=== PATIENT | male | born 1940 | race Two or more races ===

== ENCOUNTER 2018-10-21 16:44 | Inpatient (IN) | payer MEDICARE, OTHER ==
[~2018-10-21] VITALS: Ht 165.1 cm; Wt 61.7 kg
[2018-10-21 16:45] VITALS: BP 158/88
--- NOTE | 2018-10-21 16:45 | NUR ---
ED Nurse Note: brought by RA 26 from home due to allergic reaction after took penicillins that prescribed by dentist. pt c/o itchness. per EMS, redness is normal to him. no SOB. ermd on bedside. will continue to monitor.
[2018-10-21] MEDS ORDERED: DiphenhydrAMINE 50mg/ml Inj IVP ONE ×2 (17:00)
--- NOTE | 2018-10-21 17:07 | Emergency Room Report ---
History of Present Illness General Chief Complaint: Allergic Reaction Source: Patient, EMS Present Illness HPI 78-year-old male with a history of hypertension diabetes presenting with allergic reaction. He was at the dentist. He took one penicillin pill. He has never taken this antibiotic in the past. He broke out in hives. He said he is very itchy. The rash broke out on his face arms and abdomen. No throat closing, no shortness of breath. He is complaining of some vague left-sided chest pain. Never had a stress test. No nausea or vomiting Allergies: Coded Allergies: PENICILLINS (Verified Allergy, Unknown, 10/21/18) Patient History Past Medical History: see triage record Past Surgical History: none Pertinent Family History: none Reviewed Nursing Documentation: PMH: Agreed; PSxH: Agreed Nursing Documentation-PMH Past Medical History: No History, Except For Hx Hypertension: Yes Hx Diabetes: Yes Review of Systems All Other Systems: negative except mentioned in HPI Physical Exam Vital Signs Date Time Temp Pulse Resp B/P (MAP) Pulse Ox O2 Delivery O2 Flow Rate FiO2 10/21/18 16:35 98.8 127 18 158/88 95 Room Air Sp02 EP Interpretation: reviewed, normal General Appearance: alert, GCS 15, non-toxic, mild distress Head: normocephalic, atraumatic Eyes: bilateral eye normal inspection, bilateral eye PERRL, bilateral eye EOMI ENT: normal pharynx, no angioedema, normal voice, moist mucus membranes Neck: normal inspection, full range of motion, supple Respiratory: no respiratory distress, no accessory muscle use, speaking full sentences Cardiovascular #1: tachycardia Cardiovascular #2: 2+ radial (R), 2+ radial (L) Gastrointestinal: normal inspection, non tender, soft, non-distended, no guarding Musculoskeletal: normal inspection, back normal, normal range of motion, non- tender Neurologic: normal inspection, alert, oriented x3, responsive, motor strength/ tone normal, sensory intact, normal gait, speech normal Psychiatric: normal inspection, judgement/insight normal, memory normal Skin: no rash, warm/dry, well hydrated, normal turgor, other - Raised urticarial rash noted on face abdomen and arms Procedures Critical Care Time Critical Care Time Critical care time of 40 minutes, was performed in order to assess and manage the high probability of imminent or life threatening deterioration , with frequent reassessment and excludes all billable procedures. Medical Decision Making Diagnostic Impression: Primary Impression: Chest pain Additional Impressions: ACS (acute coronary syndrome) Anaphylactic reaction Renal insufficiency ER Course 78-year-old male with allergic reaction Likely 2/2 to penicillin Now also with left-sided chest pain Allergic reaction from antibiotic, also rule out ACS due to patient not experiencing chest pain Plan: Benadryl, pepcid, steroids No epi is required at this time Labs, EKG, chest x-ray ER course: No respiratory symptoms or angioedema. He still continues to be tachycardic although it is improved from 140 to 1:15 to 120. No shortness of breath no angioedema no wheezing. got fluids/solumedrol-pepcid/benadryl Disposition: Patient is to be admitted to Dr Casillas he has accepted at 838pm EKG Diagnostic Results EP Interpretation: Yes Rate: 124 Rhythm: NSR ST Segments: No acute changes ASA given to patient: No Rhythm Strip EP Interpretation: Yes Rate:120 Rhythm: NSR, no PVCs, no ectopy Chest X-ray CXR: Ordered: Yes 1 view Indication: Chest pain EP interpretation: Yes Interpretation: mild cardiomegaly Impression: No acute disease Electronically signed by Arvind Bridges MD Laboratory Tests Test 10/21/18 16:59 10/21/18 17:50 White Blood Count 13.1 K/UL (4.8-10.8) H Red Blood Count 5.37 M/UL (4.70-6.10) Hemoglobin 16.8 G/DL (14.2-18.0) Hematocrit 49.4 % (42.0-52.0) Mean Corpuscular Volume 92 FL (80-99) Mean Corpuscular Hemoglobin 31.3 PG (27.0-31.0) H Mean Corpuscular Hemoglobin Concent 34.0 G/DL (32.0-36.0) Red Cell Distribution Width 12.7 % (11.6-14.8) Platelet Count 234 K/UL (150-450) Mean Platelet Volume 6.7 FL (6.5-10.1) Neutrophils (%) (Auto) % (45.0-75.0) Lymphocytes (%) (Auto) % (20.0-45.0) Monocytes (%) (Auto) % (1.0-10.0) Eosinophils (%) (Auto) % (0.0-3.0) Basophils (%) (Auto) % (0.0-2.0) Sodium Level 135 MMOL/L (136-145) L Potassium Level 4.5 MMOL/L (3.5-5.1) Chloride Level 98 MMOL/L (98-107) Carbon Dioxide Level 20 MMOL/L (21-32) L Anion Gap 17 mmol/L (5-15) H Blood Urea Nitrogen 28 mg/dL (7-18) H Creatinine 1.7 MG/DL (0.55-1.30) H Estimate Glomerular Filtration Rate mL/min (>60) Glucose Level 282 MG/DL (74-106) H Calcium Level 9.1 MG/DL (8.5-10.1) Total Bilirubin 0.6 MG/DL (0.2-1.0) Aspartate Amino Transferase (AST) 18 U/L (15-37) Alanine Aminotransferase (ALT) 16 U/L (12-78) Alkaline Phosphatase 78 U/L (46-116) Troponin I 0.000 ng/mL (0.000-0.056) Pro-B-Type Natriuretic Peptide 636 pg/mL (0-125) H Total Protein 7.6 G/DL (6.4-8.2) Albumin 3.7 G/DL (3.4-5.0) Globulin 3.9 g/dL Albumin/Globulin Ratio 0.9 (1.0-2.7) L Urine Color Pale yellow Urine Appearance Slightly cloudy Urine pH 5 (4.5-8.0) Urine Specific [place] 1.010 (1.005-1.035) Urine Protein 2+ (NEGATIVE) H Urine Glucose (UA) 3+ (NEGATIVE) H Urine Ketones Negative (NEGATIVE) Urine Blood 2+ (NEGATIVE) H Urine Nitrite Negative (NEGATIVE) Urine Bilirubin Negative (NEGATIVE) Urine Urobilinogen Normal MG/DL (0.0-1.0) Urine Leukocyte Esterase 1+ (NEGATIVE) H Urine RBC 0-2 /HPF (0 - 0) H Urine WBC 5-10 /HPF (0 - 0) H Urine Squamous Epithelial Cells Occasional /LPF Urine Bacteria Few /HPF (NONE) Urine Waxy Casts 0-2 /LPF (NONE) H Urine Mucus Few /LPF (NONE/OCC) H CT/MRI/US Diagnostic Results CT/MRI/US Diagnostic Results : Imaging Test Ordered: CT HEAD Impression mild atrophy Last Vital Signs Date Time Temp Pulse Resp B/P (MAP) Pulse Ox O2 Delivery O2 Flow Rate FiO2 10/21/18 16:45 127 18 Room Air 10/21/18 16:45 98.8 158/88 95 Disposition: ADMITTED INPATIENT Condition: Serious Arvind Bridges M.D. Oct 21, 2018 17:07
[2018-10-21 17:15] LABS: HEMATOCRIT 49.4 % (42.0-52.0); HEMOGLOBIN 16.8 G/DL (14.2-18.0); MEAN CORPUSCULAR VOLUME 92 FL (80-99); PLATELET COUNT 234 K/UL (150-450); RED BLOOD COUNT 5.37 M/UL (4.70-6.10); RED CELL DISTRIBUTION WIDTH 12.7 % (11.6-14.8); WHITE BLOOD COUNT 13.1 K/UL (4.8-10.8)
[2018-10-21 17:28] LABS: ANION GAP 17 mmol/L (5-15); BLOOD UREA NITROGEN 28 mg/dL (7-18); CALCIUM 9.1 MG/DL (8.5-10.1); CARBON DIOXIDE 20 MMOL/L (21-32); CHLORIDE 98 MMOL/L (98-107); CREATININE 1.7 MG/DL (0.55-1.30); POTASSIUM 4.5 MMOL/L (3.5-5.1); SODIUM 135 MMOL/L (136-145)
[2018-10-21 17:42] LABS: ALANINE AMINOTRANSFERASE 16 U/L (12-78); ALBUMIN 3.7 G/DL (3.4-5.0); ALBUMIN/GLOBULIN RATIO 0.9 (1.0-2.7); ALKALINE PHOSPHATASE 78 U/L (46-116); ASPARTATE AMINO TRANSFERASE 18 U/L (15-37); BILIRUBIN,TOTAL 0.6 MG/DL (0.2-1.0)
--- NOTE | 2018-10-21 17:45 | NUR ---
ED Nurse Note: pt able to give urine specimen and sent to lab.
[2018-10-21 18:00] LABS: APPEARANCE,URINE SLIGHTLY CLOUDY; BILIRUBIN, URINE NEGATIVE (NEGATIVE); COLOR,URINE PALE YELLOW; GLUCOSE, URINE (UA) 3+ (NEGATIVE); KETONES,URINE NEGATIVE (NEGATIVE); LEUKOCYTE ESTERASE ,URINE 1+ (NEGATIVE); NITRITE,URINE NEGATIVE (NEGATIVE); PH,URINE 5 (4.5-8.0); PROTEIN,URINE 2+ (NEGATIVE); UROBILINOGEN,URINE NORMAL MG/DL (0.0-1.0)
[2018-10-21 19:20] VITALS: BP 175/100
[2018-10-21] MEDS ORDERED: Solu-MEDROL 125mg Inj IVP ONE (19:45)
--- NOTE | 2018-10-21 20:03 | NUR ---
ED Nurse Note: patient is in the bed, HR is 135, BP is 157/95. AAO x4.
[2018-10-21 21:35] VITALS: BP 208/111
[2018-10-21 22:45] VITALS: BP 154/98
--- NOTE | 2018-10-21 22:45 | NUR ---
ED Nurse Note: Patient was admited to Tele due to allergic reaction. AAO x4, patient's BP is 158/98, other VSS. all belongings were given to the patient. Patient was transfered by ACLS protocol.
--- NOTE | 2018-10-21 22:47 | NUR ---
NURSE NOTES: Received patient and report from KAVITA Abrams via juan from ED. Patient is awake showing no signs of acute distress. AOx4. Denies any pain or discomfort. BP - 145/96, pulse 125, Temp. 96.5, R 18, O2 sat 98%. All needs attended and met. Family at bedside. Bed in lowest position. Call light within reach. Will call Dr. Casillas for admission order.
[2018-10-21 23:00] VITALS: BP 145/96
--- NOTE | 2018-10-21 23:00 | NUR ---
NURSE NOTES: Received admission orders from Dr. Casillas. Noted and carried out
[2018-10-22 04:00] VITALS: BP 133/92
[2018-10-22] MEDS ORDERED: NovoLOG Insulin Flexpen SUBQ SCH (06:30)
--- NOTE | 2018-10-22 07:14 | NUR ---
CASE MANAGEMENT:REVIEW 78 YR OLD MALE BIBA FROM HOME CC: ITCHING AFTER TAKING PENICILLIN PRESCRIBED BY DENTIST SI: ANAPHYLACTIC REACTION. ACS. RENAL INSUFF 98.8 127 18 175/100 95% ON RA WBC+13.1 BUN+28 CR+1.7 GLUCOSE+282 TROPONIN(-) IS: IV BENADRYL X2 IV PEPCID X2 1L NS BOLUS X1 IV SOLUMEDROL X1 CT HEAD CXR : TO TELEMETRY INTERQUAL CRITERIA MET
--- NOTE | 2018-10-22 07:31 | NUR ---
HAND-OFF: Report given to KAVITA Flowers.
--- NOTE | 2018-10-22 07:49 | NUR ---
NURSE NOTES: Received report from KAVITA Gray. Patient is in stable condition. No acute distress/SOB noted. is at the bedside. Will continue plan of care.
[2018-10-22 08:00] VITALS: BP 147/99
[2018-10-22 08:34] VITALS: BP 147/99
[2018-10-22] MEDS ORDERED: Losartan 50mg tab ORAL SCH (09:00)
[2018-10-22] MEDS ORDERED: JANUVIA25 MG ORAL (09:11)
[2018-10-22] MEDS ORDERED: IBUPROFEN600 MG ORAL (09:11)
[2018-10-22] MEDS ORDERED: COZAAR50 MG ORAL (09:11)
[2018-10-22 09:27] LABS: ANION GAP 11 mmol/L (5-15); BLOOD UREA NITROGEN 35 mg/dL (7-18); CARBON DIOXIDE 24 MMOL/L (21-32); CHLORIDE 99 MMOL/L (98-107); CREATININE 1.6 MG/DL (0.55-1.30); POTASSIUM 4.5 MMOL/L (3.5-5.1); SODIUM 134 MMOL/L (136-145)
--- NOTE | 2018-10-22 10:49 | Diagnostic Imaging Report ---
Indication: Head trauma headache Technique: Contiguous 5 mm thick transaxial imaging of the head obtained in a Siemens Sensation [address] scanner. Soft tissue and bone windows generated. Automatic Exposure Control was utilized. Total Dose length Product (DLP): 1404.[address] Dose Index Volume (CTDIvol): 70.38 mGy Comparison: none Findings: There is mild prominence of the ventricles, basal cisterns, and cerebral sulci consistent with atrophy. Mild, nonspecific, white matter hypoattenuation is noted throughout the brain consistent with chronic small vessel disease. There is no midline shift, edema, acute hemorrhage, mass effect, or abnormal extra-axial fluid collections. Bones and extra osseous soft tissues are unremarkable. Impression: No acute intracranial bleed, mass effect or edema. Mild atrophy of the brain. Nonspecific white matter hypoattenuation probably due to chronic small vessel disease. The CT scanner at [facility] is accredited by the [employer] and the scans are performed using dose optimization techniques as appropriate to a performed exam including Automatic Exposure control.
--- NOTE | 2018-10-22 10:52 | NUR ---
NURSE NOTES: Discharge instruction given and patient verbalized understanding. Removed IV line and hall monitor. Patient is in stable condition. No acute distress/SOB noted. Patient denies any pain at this time. Awaiting for daughter to picker packer.
--- NOTE | 2018-10-22 10:56 | NUR ---
NURSE NOTES: Patient left with stable condition via private car.
--- NOTE | 2018-10-22 11:07 | NUR ---
*-* INSURANCE *-* NO INSURANCE INFORMATION ON THE BAR TO SEND CLINICALS. CLINICALS HAVE BEEN FAXED TO [facility] FAX. [facility] F:[phone]
--- NOTE | 2018-10-22 11:26 | Diagnostic Imaging Report ---
Indication: Dyspnea Comparison: None A single view chest radiograph was obtained. Findings: Cardiomediastinal appearance is within normal limits for age. The lungs are clear. Pulmonary vascularity is appropriate. The diaphragmatic contour is smooth and costophrenic angles are sharp. No pleural effusions are identified. The bones are osteopenic. Impression: No acute findings
--- NOTE | 2018-10-22 14:56 | Cardiology Report ---
APPROVED REPORT EKG Measurement Heart [id number] Sinus tachycardia Left axis deviation Cannot rule out Anterior infarct, age undetermined Abnormal ECG
--- NOTE | 2018-10-22 16:30 | Consultation ---
DATE OF CONSULTATION: 10/22/2018 DATE OF ADMISSION: October 21, 2018. CONSULTING PHYSICIAN: Chris Aguiar M.D. REFERRING PHYSICIAN: Jerome Casillas M.D. REASON FOR CONSULTATION: 1. Acute kidney injury. 2. Chronic kidney disease, stage 3B. HISTORY OF PRESENT ILLNESS: The patient is a pleasant 78-year-old gentleman with known diabetes and hypertension, who was admitted overnight for further evaluation and care after an allergic reaction to penicillin. The patient was at his dentist. He was admitted due to feeling quite itchy and remaining tachycardic. He was noted to have creatinine of 1.7. The patient states that he has been told in the past by his primary care physician that his kidney function is not 100%, but he does not know his baseline creatinine. ALLERGIES: Penicillin. PAST MEDICAL HISTORY: 1. Diabetes. 2. Hypertension. 3. Hyperlipidemia. PAST SURGICAL HISTORY: None. FAMILY HISTORY: Positive for hypertension and diabetes. REVIEW OF SYSTEMS: NEUROLOGIC: The patient denies headache, change in vision, syncope, or presyncopal episodes. CARDIOVASCULAR: No current chest pain, palpitations, or angina. PULMONARY: No difficulty breathing, productive cough, or sputum. GASTROINTESTINAL/GENITOURINARY: No change in urinary or bowel habits. No nausea, vomiting, or diarrhea. ENDOCRINOLOGY: No night sweats, fevers, or chills. The patient is feeling itchy. MUSCULOSKELETAL: The patient is feeling weak, tired, and fatigued. PHYSICAL EXAMINATION: VITAL SIGNS: Pulse 112, temperature 98.4, blood pressure 133/92, respiratory rate 18, 98% oxygen saturation on room air. GENERAL: The patient is awake, alert, not otherwise in distress. HEENT: Extraocular muscles intact. No lymphadenopathy noted. Oropharyngeal mucosa clear and dry. CARDIOVASCULAR: S1 and S2. No rubs or gallops. Tachycardic. PULMONARY: Clear to auscultation bilaterally. No rales, rhonchi, or wheezes. ABDOMEN: Nondistended and nontender. EXTREMITIES: No edema. LABORATORY DATA: Labs dated 10/21/2018, white cell count 13.1, hemoglobin 16.8, and platelet count 234,000. Sodium 135, potassium 4.5, BUN 28, and creatinine 1.7. ASSESSMENT AND PLAN: 1. Acute versus chronic kidney disease stage 3B. At this time, baseline is not known, but he has been told in the past that his renal function is not normal. At this time, we will recheck morning labs and proceed accordingly. Minimal further investigations. The patient will need outpatient CKD evaluation. 2. Allergic reaction to penicillin. Being managed by primary care physician with steroids and Pepcid. 3. Hypertension. Continue losartan. 4. Diabetes mellitus. The patient on insulin therapy. Chris Aguiar MD DR: PINEDA/FLACO JOB#: [id number] CC:
--- NOTE | 2018-10-22 19:00 | History and Physical Report ---
DATE OF ADMISSION: 10/21/2018 HISTORY OF PRESENT ILLNESS: This is an 78-year-old male who has a long-standing hypertensive and diabetic. He went to the dentist yesterday and despite his knowledge that he was allergic to penicillin, he states the dentist gave him a penicillin tablet. He took the tablet and started having an allergic reaction. He had a rash on his face, which was itchy. He also had a rash on his arms and abdomen. He also felt dizzy and actually fell hitting the left side of his chest against a hard object. He then came to the emergency room at [facility], was admitted to the hospital due to the combination of allergic reaction as well as chest pain. His EKG is negative. His troponin is negative overnight. He states he is feeling well. On my assessment, he has palpable left chest wall tenderness. PAST MEDICAL HISTORY: Hypertension, diabetes. ALLERGIES: Penicillin now noted. HOME MEDICATIONS: Includes Cozaar. It is unclear what he takes for diabetes, likely diet controlled only. REVIEW OF SYSTEMS: Denies any headaches, hematemesis, melena, hematochezia, night sweats, or weight loss. PHYSICAL EXAMINATION: GENERAL: Reveals an 78-year-old male. He appears slightly flushed. HEENT: Unremarkable. LUNGS: Clear breath sounds bilaterally with normal heart sounds. There is palpable left chest wall tenderness. ABDOMEN: Soft. EXTREMITIES: No edema. LABORATORY DATA: White count 13,000. Chemistries notable only for creatinine of 1.7 and glucose of 282. Urinalysis negative. IMAGING STUDIES: None. IMPRESSION: 1. Musculoskeletal chest wall pain. 2. Allergic reaction to penicillin. 3. Hypertension. 4. Diabetes. DISCUSSION: We will discharge home on oral NSAID. Caution will be given to use of these medications due to elevated creatinine. This may be baseline. Outpatient followup requested. We will also have Nephrology regarding elevated creatinine. Jerome Casillas M.D. DR: LEOPOLDO JOB#: [id number] CC:
--- NOTE | 2018-10-23 10:01 | Discharge Summary ---
Discharge Summary Discharge Summary _ DATE OF ADMISSION: 10/21/2018 DATE OF DISCHARGE: 10/22/2018 DISCHARGED BY: Dr. Kendra Casillas JAIL GUARD: Dr. Chris Aguiar BRIEF HOSPITAL COURSE: Patient is an 78-year-old male with long-standing hypertension and diabetes. Patient went to the dentist and despite knowledge that he was allergic to penicillin, was given penicillin tablet. He took the tablet and started to have an allergic reaction. He had a rash on his face, arms and abdomen. He felt dizzy and fell hitting the left side of his chest against a hard object. He then came to emergency room complaining of allergic reaction and left sided vague chest pain. On evaluation at the ED, blood pressure was 158/88, pulse 127. Blood work showed WBC of 13. Hemoglobin and hematocrit were stable. BUN was elevated to 28, creatinine to 1.7. Troponin was negative. ProBNP 630. Urinalysis showed 2 + protein, 3+ glucose, 1+ leukocyte esterase, 0-2 urine RBC, 5-10 urine WBC. EKG showed sinus tachycardia. Head CT showed nonspecific white matter hypoattenuation probably due to chronic small vessel disease, with mild atrophy of the brain, but no acute intracranial bleed, mass-effect or edema. Chest x- ray did not show any acute findings. He was given Benadryl, Pepcid and IV steroids. He was then admitted for evaluation of chest wall pain and allergic reaction to penicillin. Cardiac enzymes were monitored. Troponin was negative. EKG was negative. On evaluation, he had palpable left chest wall tenderness. Possibly musculoskeletal chest wall pain. Kidney function was monitored. Patient had acute versus chronic kidney disease stage IIIb. Baseline creatinine was unknown, per patient he had been told in the past that his renal function was not normal. He was given losartan for blood pressure control. Due to rapid unexpected improvement in patient condition,he was cleared for discharge home. He was advised cautious use of NSAIDs. FINAL DIAGNOSES: Musculoskeletal chest wall pain secondary to fall Allergic reaction to penicillin Hypertension Diabetes mellitus type 2 Acute versus chronic kidney disease stage 3B DISPOSITION: Patient was discharged home. DISCHARGE MEDICATIONS: Refer to Discharge Medication List. DISCHARGE INSTRUCTIONS: Follow-up in a week. Needs outpatient CKD evaluation I have been assigned to complete a discharge summary on this account, I was not involved with the patient's management. Solange Hernandez NP Oct 23, 2018 10:01
== END 2018-10-22 10:59 | disposition home or self-care (01) | DRG 607 ==
LOC: EDBD 16:44 → EMR 17:00 → 2E 19:54 → EDBEDREQ 20:44 → 2E 21:44
DX: L27.0 Generalized skin eruption due to drugs and medicaments taken internally (principal); N17.9 Acute kidney failure, unspecified; R07.89 Other chest pain; W19.XXXA Unspecified fall, initial encounter; W22.8XXA Striking against or struck by other objects, initial encounter; R42 Dizziness and giddiness; T36.0X5A Adverse effect of penicillins, initial encounter; I10 Essential (primary) hypertension; E11.9 Type 2 diabetes mellitus without complications; E11.22 Type 2 diabetes mellitus with diabetic chronic kidney disease; I12.9 Hypertensive chronic kidney disease with stage 1 through stage 4 chronic kidney disease, or unspecified chronic kidney disease; N18.9 Chronic kidney disease, unspecified
CPT/HCPCS: 36415; 70450; 71045; 80048; 80053; 81003; 82962; 83880; 84484; 85025; 93005; 96361; 96374; 96375; 99291; J1815